=== PATIENT | female | born 1955 | race Caucasian/White ===

== ENCOUNTER 2018-08-15 09:34 | Emergency (ER) | payer OTHER ==
[~2018-08-15] VITALS: Ht 154.9 cm; Wt 68.5 kg
--- OUTSIDE RECORDS SUMMARY | 2018-08-15 10:26 | XMS REPORT ---
Author Author Nilo Boyer Organization [employer] Address Unknown Phone Unavailable Care Team Providers Care Seamless Tube Mill Operator Name Role Phone Nilo Boyer CP Unavailable Allergies, Adverse Reactions, Alerts Substance Reaction Event Type N.K.D.A. 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 Are you a: former smoker, What year did you quit? 1992Oct 08, 2014 Use of recreational / street drugs? . Answer: No Oct 08, 2014 Marital Status: . Oct 08, 2014 Do you exercise? . Answer: Yes, Type: walking 4 x's a week Oct 08, 2014 Do you drink alcohol? . Status: Yes, Type: Moderately Oct 08, 2014 Family history Qualifier Description Comment Date Reported Mother lymphoma, hardening of the arteries Oct 08, 2014 Father lung cancer Oct 08, 2014 Vital Signs Date/Time: Oct 08, 2014 Weight 145 lbs Height 61 in Temperature 98.8 F Cardiac Monitoring Heart Rate 64 /min Blood Pressure Diastolic 82 mm Hg Blood Pressure Systolic 124 mm Hg Summary Purpose eClinicalWorks Submission
--- OUTSIDE RECORDS SUMMARY | 2018-08-15 10:26 | XMS REPORT ---
Author Author Nilo Boyer Organization [employer] Address Unknown Phone Unavailable Care Team Providers Care Airflight Attendants Supervisor Name Role Phone Nilo Boyer CP Unavailable Encounters Encounter Location Date Unknown [place] January 05, 2014 side pain [place], [place] Jul 06, 2014 New Appointment Request [place] Oct 05, 2014 Social History Social History Element Qualifiers Date Reported Tobacco Use: . Are you a: former smoker, What year did you quit? 1993 Jul 06, 2014 Use of recreational / street drugs? . Answer: No Jul 06, 2014 Marital Status: . Jul 06, 2014 Do you exercise? . Answer: Yes, Type: walking 4 x's a week Jul 06, 2014 Do you drink alcohol? . Status: Yes, Type: Moderately Jul 06, 2014 Summary Purpose eClinicalWorks Submission
--- OUTSIDE RECORDS SUMMARY | 2018-08-15 10:26 | XMS REPORT ---
Author Author Nilo Boyer Organization [employer] Address Unknown Phone Unavailable Care Team Providers Care Supervisor Metalizing Name Role Phone Nilo Boyer CP Unavailable Encounters Encounter Location Date sick visit [place] Oct 08, 2014 UTI [place] May 03, 2015 UTI [place] May 06, 2015 UTI [place], [place] May 09, 2015 Unknown N[place], [place] January 05, 2014 side pain [place], [place] Jul 06, 2014 New Appointment Request [place], [place] Oct 05, 2014 Problems Problem Type Condition ICD-9 Code Onset Dates Condition Status Problem Need for prophylactic vaccination and inoculation, Influenza V04.81 Active Problem Routine general medical examination at health care facility V70.0 Active Problem Elevated blood pressure 796.2 Active Problem Acute frontal sinusitis 461.1 Active Problem Urinary tract infection 599.0 Active Problem Abdominal pain, left upper quadrant 789.02 Active Problem Acute gastritis without mention of hemorrhage 535.00 Active Problem 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 Are you a: former smoker, What year did you quit? 1993 May 06, 2015 Use of recreational / street drugs? . Answer: No May 06, 2015 Marital Status: . May 06, 2015 Do you exercise? . Answer: Yes, Type: walking 4 x's a week May 06, 2015 Do you drink alcohol? . Status: Yes, Type: Moderately May 06, 2015 Summary Purpose eClinicalWorks Submission
--- OUTSIDE RECORDS SUMMARY | 2018-08-15 10:26 | XMS REPORT | Summary of Care ---
Author Organization Unknown Address Unknown Phone Unavailable Encounter HQ Gino_kimberly(ALE) [id number] Date(s): 08/03/14 - 08/03/14 [facility] Outpatient Imaging [address] Discharge Disposition: Home Physician Attending: Nilo Boyer DO Reason for Visit 789.02 - ABDMNAL PAIN LF 535.0 - ACUTE GASTRITIS Problem List No data available for this section Allergies, Adverse Reactions, Alerts No data available for this section Medications No data available for this section Medications Administered During Your Visit No data available for this section Immunizations No data available for this section
--- OUTSIDE RECORDS SUMMARY | 2018-08-15 10:26 | XMS REPORT | Summary of Care ---
Author Author [facility] Organization [facility] Address Unknown Phone Unavailable Encounter HQ Encntr_alias(FIN) [id number] Date(s): 09/18/17 - 09/18/17 [facility] [address] [facility] [address] [place], [place] [address] [address] [phone] Discharge Disposition: Home or Self Care Attending Physician: Caroline Niño MD Vital Signs No data available for this section Problem List No data available for this section Allergies, Adverse Reactions, Alerts No data available for this section Medications No data available for this section Results No data available for this section Immunizations No data available for this section Procedures No data available for this section Social History No data available for this section Assessment and Plan No data available for this section
--- OUTSIDE RECORDS SUMMARY | 2018-08-15 10:26 | XMS REPORT ---
Author Author Nilo Boyer Organization [employer] Address Unknown Phone Unavailable Care Team Providers Care Night Shift Manager Name Role Phone Nilo Boyer CP Unavailable Allergies, Adverse Reactions, Alerts Substance Reaction Event Type N.K.D.A. Info Not Available Non Drug Allergy Encounters Encounter Location Date Unknown [place], [place] January 05, 2014 side pain [place], [place] Jul 06, 2014 Problems Problem Type Condition ICD-9 Code Onset Dates Condition Status Problem Acute gastritis without mention of hemorrhage 535.00 Active Problem Need for prophylactic vaccination and inoculation, Influenza V04.81 Active Problem Abdominal pain, left upper quadrant 789.02 Active Assessment Acute gastritis without mention of hemorrhage 535.00 Active Assessment Need for prophylactic vaccination and inoculation, Influenza V04.81 Active Problem Routine general medical examination at health care facility V70.0 Active Assessment Abdominal pain, left upper quadrant 789.02 Active Social History Social History Element Qualifiers Date Reported Tobacco Use: . Are you a: former smoker, What year did you quit? 1992Jul 06, 2014 Use of recreational / street drugs? . Answer: No Jul 06, 2014 Marital Status: . Jul 06, 2014 Do you exercise? . Answer: Yes, Type: walking 4 x's a week Jul 06, 2014 Do you drink alcohol? . Status: Yes, Type: Moderately Jul 06, 2014 Family history Qualifier Description Comment Date Reported Mother lymphoma, hardening of the arteries Jul 06, 2014 Father lung cancer Jul 06, 2014 Vital Signs Date/Time: Jul 06, 2014 Weight 135 lbs Height 61 in Temperature 98.6 F Cardiac Monitoring Heart Rate 84 /min Blood Pressure Diastolic 70 mm Hg Blood Pressure Systolic 98 mm Hg Immunizations Vaccine Administration Date Flu Vaccine - NOT Medicare Jul 06, 2014 Summary Purpose eClinicalWorks Submission
--- OUTSIDE RECORDS SUMMARY | 2018-08-15 10:26 | XMS REPORT | Continuity of Care Document ---
Author [facility] Address Unknown Phone Unavailable Problems Problem Status Onset Date Classification Date Reported Comments Source Routine general medical examination at health care facility Active Problem 05/10/2015 Nilo Boyer Acute gastritis without mention of hemorrhage Active Problem 05/10/2015 Nilo Boyer Need for prophylactic vaccination and inoculation, Influenza Active Problem 05/10/2015 Nilo Boyer Abdominal pain, left upper quadrant Active Problem 05/10/2015 Nilo Boyer Acute frontal sinusitis Active Problem 05/10/2015 Nilo Boyer Hypersomnia due to another medical condition Active Problem 05/10/2015 Nilo Boyer Elevated blood pressure Active Problem 05/10/2015 Nilo Boyer Headache Active Problem 05/10/2015 Nilo Boyer Urinary tract infection Active Problem 05/10/2015 Nilo Boyer Medications Medication Details Route Status Patient Instructions Ordering Provider Order Date Source Cipro 1 tablet Orally Active 500 mg Orally Twice a day [place] 05/09/2015 Nilo Boyer Bactrim DS 1 tablet Orally Active 800-160 MG Orally twice a day (bid) [place] 05/03/2015 Nilo Boyer Allergies, Adverse Reactions, Alerts Substance Category Reaction Severity Reaction type Status Date Reported Comments Source N.K.D.A. Adverse Reaction Info Not Available Adverse Reaction Active 10/08/2014 Nilo Boyer Immunizations Immunization Date Given Site Status Last Updated Comments Source Flu Vaccine - NOT Medicare 07/06/2014 completed Nilo Boyer Results Order Name Results Value Reference Range Date Interpretation Comments Source Vital Signs Vital Sign Value Date Comments Source Weight 145 10/08/2014 Nilo Boyer Height 61 10/08/2014 Nilo Boyer Temperature Oral (F) 98.8 F 10/08/2014 Nilo Boyer Heart Rate 64 10/08/2014 Nilo Boyer Diastolic (mm Hg) 82 10/08/2014 Nilo E Buxbaum Systolic (mm Hg) 124 10/08/2014 Nilo Boyer Weight 135 07/06/2014 Nilo Boyre Height 61 07/06/2014 Nilo Myersaum Temperature Oral (F) 98.6 F 07/06/2014 Nilo Rizom Heart Rate 84 07/06/2014 Nilo Myersaum Diastolic (mm Hg) 70 07/06/2014 Nilo Newellxbaum Systolic (mm Hg) 98 07/06/2014 Nilo Rizom Weight 138 01/05/2014 Nilo Boyer Height 61 01/05/2014 Nilo Myersaum Temperature Oral (F) 98.7 F 01/05/2014 Nilo Myersaum Heart Rate 72 01/05/2014 Nilo Myersaum Diastolic (mm Hg) 76 01/05/2014 Nilo Myersaum Systolic (mm Hg) 112 01/05/2014 Nilo Boyer Encounters Location Location Details Encounter Type Encounter Number Reason For Visit Attending Provider ADM Date DC Date Status Source [place] Unknown [id number] 01/05/2014 01/05/2014 [place] Unknown [id number] 01/05/2014 01/05/2014 N[place] Unknown [id number] 01/05/2014 01/05/2014 Nilo Boy[place], [place] Unknown [id number] 01/05/2014 01/05/2014 Nilo Boy[place] DO, [place] Unknown [id number] 01/05/2014 01/05/2014 Nilo [place] DO, [place] Unknown [id number] 01/05/2014 01/05/2014 [place] DO [place] side pain [id number] 07/06/2014 07/06/2014 N[place] side pain [id number] 07/06/2014 07/06/2014 N[place] DO [place] side pain [id number] 07/06/2014 07/06/2014 Nilo [place] DO [place] side pain [id number] 07/06/2014 07/06/2014 Nilo Boyer DO [place] pain [id number] 07/06/2014 07/06/2014 Nilo Boyer [facility] Out[facility] [place] [facility] [id number] Nilo Boyer 08/03/2014 08/04[facility] [place] New Appointment Request [id number] 10/05/2014 10/05/2014 [place] New Appointment Request [id number] 10/05/2014 10/05/2014 Nilo Boy[place] DO, [place] New Appointment Request [id number] 10/05/2014 10/05/2014 Nilo Boy[place] DO, [place] New Appointment Request [id number] 10/05/2014 10/05/2014 Nilo [place], [place] sick visit [id number] 10/08/2014 10/08/2014 Nilo Boyer Nilo Rani [place], [place] sick visit [id number] 10/08/2014 10/08/2014 Nilo Boyer Nilo Rani [place], [place] sick visit [id number] 10/08/2014 10/08/2014 [place] UTI [id number] 05/03/2015 05/03/2015 Nilo [place] DO, [place] UTI [id number] 05/03/2015 05/03/2015 Nilo Boyer Nilo Rani Boyer DO, [place] UTI [id number] 05/06/2015 05/06/2015 Nilo Boy[place] DO, [place] UTI [id number] 05/06/2015 05/06/2015 Nilo Boy[place] DO, [place] UTI [id number] 05/09/2015 05/09/2015 Nilo [place] UTI [id number] 05/09/2015 05/09/2015 Nilo Boyer Outpatient [id number] CAROLINE GARCIA 09/18/2017 [facility] [id number] Caroline Garcia 09/18/2017 09/19/2017 Medical Group Procedures Procedure Code Date Perfomer Comments Source
--- OUTSIDE RECORDS SUMMARY | 2018-08-15 10:26 | XMS REPORT ---
Author Author Nilo Boyer Organization [employer] Address Unknown Phone Unavailable Care Team Providers Care Freight Elevator Erector Name Role Phone Nilo Boyer CP Unavailable Encounters Encounter Location Date Unknown [place], [place] January 05, 2014 Problems Problem Type Condition ICD-9 Code Onset Dates Condition Status Assessment Routine general medical examination at health care facility V70.0 Active Problem Routine general medical examination at health care facility V70.0 Active Social History Social History Element Qualifiers Date Reported Tobacco Use: . Are you a: former smoker, What year did you quit? 1992January 05, 2014 Use of recreational / street drugs? . Answer: No January 05, 2014 Marital Status: . January 05, 2014 Do you drink alcohol? . Status: Yes, Type: Moderately January 05, 2014 Family history Qualifier Description Comment Date Reported Mother lymphoma, hardening of the arteries January 05, 2014 Father lung cancer January 05, 2014 Vital Signs Date/Time: January 05, 2014 Weight 138 lbs Height 61 inches Temperature 98.7 F Cardiac Monitoring Heart Rate 72 Beats per Minute Blood Pressure Diastolic 76 mm Hg Blood Pressure Systolic 112 mm Hg Summary Purpose eClinicalWorks Submission
--- OUTSIDE RECORDS SUMMARY | 2018-08-15 10:26 | XMS REPORT ---
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 Are you a: former smoker, What year did you quit? 1993 Oct 08, 2014 Use of recreational / street drugs? . Answer: No Oct 08, 2014 Marital Status: . Oct 08, 2014 Do you exercise? . Answer: Yes, Type: walking 4 x's a week Oct 08, 2014 Do you drink alcohol? . Status: Yes, Type: Moderately Oct 08, 2014 Summary Purpose eClinicalWorks Submission
[2018-08-15] MEDS ORDERED: CLONIDINE HCL 0.1 MG TAB PO ONE (10:30)
== END 2018-08-15 11:01 | disposition home or self-care (01) ==
LOC: FSED 09:34
DX: H43.391 Other vitreous opacities, right eye (principal); I10 Essential (primary) hypertension
CPT/HCPCS: 99283